=== PATIENT | male | born 2000 | race Caucasian/White ===

== ENCOUNTER 2019-08-15 03:14 | Emergency (ER) | payer SELFPAY ==
--- NOTE | 2019-08-15 07:24 | CT ---
CT CERVICAL SPINE: Date: 08/15/2019 PROVIDED CLINICAL HISTORY: Trauma. FINDINGS: There is no evidence for fracture or traumatic subluxation. No prevertebral soft tissue swelling appa rent. The visualized lung apices appear clear. IMPRESSION: No evidence for fracture or traumatic subluxation. POS: [facility]
--- NOTE | 2019-08-15 07:25 | CT ---
CT BRAIN: Date: 08/15/2019 PROVIDED CLINICAL HISTORY: Trauma. FINDINGS: The ventricular system appears normal in size and morphology. There is no evidence for intracranial h emorrhage or mass effect. The extracranial soft tissues and osseous structures demonstrate an unremar kable CT appearance. IMPRESSION: No evidence for intracranial hemorrhage or mass effect. POS: [facility]
== END 2019-08-15 06:18 ==
LOC: ERS 03:14 → EDBD 03:14 → ERS 06:18
DX: S00.81XA Abrasion of other part of head, initial encounter (principal); F10.129 Alcohol abuse with intoxication, unspecified; X58.XXXA Exposure to other specified factors, initial encounter
CPT/HCPCS: 70450; 72125